=== PATIENT | male | born 1955 | race Caucasian/White ===

== ENCOUNTER 2018-02-02 11:06 | Outpatient (CLI) | payer OTHER | END 2018-02-02 11:07 | disposition home or self-care (01) | LOC: RT 11:06 | PROVIDERS: ATTEND Physician Assistant | DX: R94.31 Abnormal electrocardiogram [ECG] [EKG] (principal); Z86.74 Personal history of sudden cardiac arrest | CPT/HCPCS: 93005 ==

== ENCOUNTER 2018-11-24 09:11 | Day surgery (SDC) | payer MEDICARE, OTHER ==
[2018-11-24] MEDS ORDERED: fentaNYL 250 MCG/5 ML VIAL IVP ONE (09:12)
[2018-11-24] MEDS ORDERED: MIDAZOLAM 2 MG/2 ML VIAL IVP ONE (09:12)
[2018-11-24] MEDS ORDERED: LACTATED RINGERS 1,000 ML IV ONE (09:59)
[2018-11-24] MEDS ORDERED: ONDANSETRON 4 MG/2 ML VIAL ONE (11:53)
[2018-11-24 12:16] VITALS: BP 121/80
== END 2018-11-24 09:12 | disposition home or self-care (01) ==
LOC: SDS 09:11
PROVIDERS: ATTEND Surgery
PROC: 0DJD8ZZ Inspection of Lower Intestinal Tract, Via Natural or Artificial Opening Endoscopic (ICD-10-PCS; principal; 2018-11-24 10:30)
DX: Z09 Encounter for follow-up examination after completed treatment for conditions other than malignant neoplasm (principal); K64.8 Other hemorrhoids; G47.30 Sleep apnea, unspecified; Z86.010 Personal history of colon polyps; F17.210 Nicotine dependence, cigarettes, uncomplicated; Z80.0 Family history of malignant neoplasm of digestive organs
CPT/HCPCS: 45378; J3010; J7120

== ENCOUNTER 2019-02-26 10:35 | Emergency (ER) | payer MEDICARE, OTHER ==
--- NOTE | 2019-02-26 11:24 | XRAY Report ---
Reason: injury Procedure Date: 02/26/2019 Accession Number: [id number] / [id number] Procedure: XR - Wrist 4 View LT CPT Code: Final Report FULL RESULT: EXAM: LEFT WRIST RADIOGRAPHY EXAM DATE: 02/26/2019 11:00 AM. CLINICAL HISTORY: Left wrist pain. COMPARISON: None. TECHNIQUE: 3 views. FINDINGS: Bones: Mildly displaced impacted distal radial metaphyseal fracture. Nondisplaced ulnar styloid tip fracture. Joints: Moderate first carpometacarpal DJD. Normal alignment. Soft Tissues: Normal. No soft tissue swelling. IMPRESSION: Distal radial metaphyseal and ulnar styloid fractures. [facility]
[2019-02-26] MEDS ORDERED: BUPIVACAINE 0.5%-EPI 1:200000 PF 10 ML VIAL SUBQ STA (12:31)
--- NOTE | 2019-02-26 12:32 | ED Physician Documentation ---
PD HPI UPPER EXT INJURY - Stated complaint Stated Complaint: LT ARM INJURY - Chief complaint Chief Complaint: Trauma Ext - History obtained from History obtained from: Patient (Last night he slipped on a wet floor and fell on outstretched left, nondominant hand and now has moderate pain and a deformity to the left wrist. No other injuries.) Review of Systems Constitutional: reports: Reviewed and negative Cardiac: reports: Reviewed and negative Respiratory: reports: Reviewed and negative GI: reports: Reviewed and negative PD PAST MEDICAL HISTORY - Past Medical History Cardiovascular: None Respiratory: Sleep apnea Endocrine/Autoimmune: None GI: GERD : Benign prostate hypertrophy HEENT: None Psych: Bipolar disorder Musculoskeletal: None Derm: Eczema - Past Surgical History General: Gastric surgery, Colonoscopy, EGD Ortho: Other - Present Medications Home Medications: Ambulatory Orders Medication Instructions Recorded Confirmed Hydrocodone/Acetaminophen 1 - 2 each PO Q6H PRN #14 tablet 02/26/19 [Hydrocodon-Acetaminophen 5-325] Varenicline Tartrate [Chantix] 1 mg PO 02/26/19 02/26/19 - Allergies Allergies/Adverse Reactions: Allergies Allergy/AdvReac Type Severity Reaction Status Date / Time No Known Drug Allergies Allergy Verified 02/26/19 10:44 - Social History Does the pt smoke?: No Smoking Status: Former smoker PD ED PE NORMAL - Vitals Vital signs reviewed: Yes - General General: Alert and oriented X 3, No acute distress - Neck Neck: No bony TTP - Extremities Extremities: Other (There is a deformity of the left wrists consistent with a Colles' fracture, normal neurovascular function of the hand. The remainder of the upper extremities are nontender.) - Neuro Neuro: Alert and oriented X 3, Normal speech Results - Vitals Vitals: Vital Signs - 24 hr 02/26/19 02/26/19 02/26/19 10:42 13:44 13:47 Temperature 36.8 C Heart Rate 86 64 60 Respiratory 20 14 14 Rate Blood Pressure 144/92 H 136/90 H 134/95 H O2 Saturation 97 94 98 02/26/19 13:55 Temperature Heart Rate 60 Respiratory 18 Rate Blood Pressure O2 Saturation Oxygen O2 Source Room air Procedures - Splint (location) LUE Splint applied by: Physician Type of splint: Fiberglass, Long arm, Sugar tong Other: Patient tolerated well, No complications, Neurovascular intact - Reduction Body part reduced: Left, Wrist Fracture or dislocation: Fracture dislocation Anesthesia: Hematoma block, Propofol - Procedural sedation Sedation prep: Informed consent, Time out completed, Last meal (last night), AHA 1 - healthy Sedation medications: propofol (100mg IV p x1) Patient status during sedation: Responds to tactile Sedation recovery: Recovered uneventfully Time in sedation (Minutes): 15 PD MEDICAL DECISION MAKING - ED course ED course: 63-year-old gentleman with an angulated wrist fracture, and isolated injury. Initial reduction was done with hematoma block with 8 mL of Marcaine with epinephrine. He tolerated this okay but not great. I was not happy with the postreduction film. Subsequent to that we took him to a monitored area and did conscious sedation with propofol. After that the reduction looked much better. Departure - Departure Disposition: 01 Home, Self Care Clinical Impression: Colles' fracture of left radius Qualifiers: Encounter type: initial encounter Fracture type: closed Qualified Code(s): S52.532A - Colles' fracture of left radius, initial encounter for closed fracture Condition: Good Record reviewed to determine appropriate education?: Yes Instructions: ED Fx Forearm Radius Ulna Redu Requ Follow-Up: [facility] [Provider Group] - Within 1 week Prescriptions: Hydrocodone/Acetaminophen [Hydrocodon-Acetaminophen 5-325] 1 - 2 each PO Q6H PRN #14 tablet PRN Reason: pain Discharge Date/Time: 02/26/19 14:33
[2019-02-26] MEDS ORDERED: BUPIVACAINE 0.5% PF 30 ML VIAL SUBQ ONE (12:33)
[2019-02-26] MEDS ORDERED: BUPIVACAINE 0.25%-EPI 1:200000 PF 30 ML VIAL SUBQ STA (12:33)
[2019-02-26] MEDS ORDERED: HYDROcod/ACETAM 5/325 MG TABLET PO STA (12:58)
[2019-02-26] MEDS ORDERED: PROPOFOL 200 MG/20 ML VIAL IVP STA (13:25)
[2019-02-26 13:52] VITALS: BP 134/95
--- NOTE | 2019-02-26 13:55 | XRAY Report ---
Reason: evaluate reduction Procedure Date: 02/26/2019 Accession Number: [id number] / [id number] Procedure: XR - Wrist 2 View LT CPT Code: Final Report FULL RESULT: EXAM: LEFT WRIST RADIOGRAPHY EXAM DATE: 02/26/2019 01:16 PM. CLINICAL HISTORY: Evaluate reduction. COMPARISON: WRIST 4 VIEW LT 02/26/2019 10:47 AM. TECHNIQUE: 3 views. FINDINGS IMPRESSION: Overlying casting material, with persistent dorsal angulation of impacted distal radial fracture. [facility]IA
--- NOTE | 2019-02-26 14:36 | XRAY Report ---
Reason: second reduction of wrist frx Procedure Date: 02/26/2019 Accession Number: [id number] / [id number] Procedure: XR - Wrist 2 View LT CPT Code: Final Report FULL RESULT: EXAM: LEFT WRIST RADIOGRAPHY EXAM DATE: 02/26/2019 02:07 PM. CLINICAL HISTORY: Second reduction of wrist frx. COMPARISON: FOREARM LT 02/26/2019 1:16 PM. TECHNIQUE: 3 views. FINDINGS: There is an overlying cast status post reduction of distal left radius fracture. Alignment through the fracture is in improved with minimal residual displacement and angulation. No new abnormalities are seen. IMPRESSION: Near-anatomic alignment status post reduction distal left radius fracture. No new abnormalities are seen. [facility]IA
== END 2019-02-26 14:33 | disposition home or self-care (01) ==
LOC: ED 10:35
DX: S52.532A Colles' fracture of left radius, initial encounter for closed fracture (principal); W01.0XXA Fall on same level from slipping, tripping and stumbling without subsequent striking against object, initial encounter; Z87.891 Personal history of nicotine dependence
CPT/HCPCS: 25605; 73100; 73110; 99152; 99283; 99285; A9270; 94770

== ENCOUNTER 2019-03-14 10:43 | Outpatient (CLI) | payer MEDICARE, OTHER ==
[2019-03-14 11:29] LABS: BASOPHILS # (AUTO) 0.1 10^3/uL (0.0-0.1); EOSINOPHILS # (AUTO) 0.3 10^3/uL (0.0-0.7); EOSINOPHILS % (AUTO) 4.7 %; HGB - HEMOGLOBIN 11.5 g/dL (14.0-18.0); LYMPHOCYTES # (AUTO) 1.9 10^3/uL (1.5-3.5); LYMPHOCYTES % (AUTO) 25.9 %; MEAN CORPUSCULAR HEMOGLOBIN 27.8 pg (27.0-31.0); MEAN CORPUSCULAR HGB CONC 32.1 g/dL (32.0-36.0); MEAN CORPUSCULAR VOLUME 86.5 fL (80.0-94.0); MEAN PLATELET VOLUME 9.8 fL (7.4-11.4); MONOCYTES # (AUTO) 0.6 10^3/uL (0.0-1.0); MONOCYTES % (AUTO) 8.2 %; NEUTROPHILS # (AUTO) 4.4 10^3/uL (1.5-6.6); NEUTROPHILS % (AUTO) 59.9 %; PLT - PLATELET COUNT 283 10^3/uL (130-450); RED BLOOD COUNT 4.14 10^6/uL (4.70-6.10); RED CELL DISTRIBUTION WIDTH 14.8 % (12.0-15.0); WHITE BLOOD COUNT 7.3 x10^3/uL (4.8-10.8)
[2019-03-14 11:43] LABS: ALBUMIN 4.1 g/dL (3.2-5.5); ALBUMIN/GLOBULIN RATIO 1.3 (1.0-2.2); CALCIUM 9.7 mg/dL (8.5-10.3); CREATININE 0.8 mg/dL (0.6-1.2); TOTAL PROTEIN 7.2 g/dL (6.7-8.2)
== END 2019-03-14 10:44 | disposition home or self-care (01) ==
LOC: LAB 10:43
PROVIDERS: ATTEND Orthopaedic Surgery Sports Medicine
DX: Z01.818 Encounter for other preprocedural examination (principal); S52.552D Other extraarticular fracture of lower end of left radius, subsequent encounter for closed fracture with routine healing; S52.122D Displaced fracture of head of left radius, subsequent encounter for closed fracture with routine healing; S52.502D Unspecified fracture of the lower end of left radius, subsequent encounter for closed fracture with routine healing
CPT/HCPCS: 36415; 80053; 85025; 93005